=== PATIENT | male | born 2005 | race African-American/Black ===

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

== ENCOUNTER 2023-10-18 11:19 | Emergency (ER) | payer MEDICAID ==
[~2023-10-18] VITALS: Ht 188 cm; Wt 109.0 kg
[~2023-10-18 11:19] MED LIST: IBUP-2029 MT; TOPUD PO
[2023-10-18 12:13] VITALS: O2SAT 99
[2023-10-18 12:31] LABS: CLARITY URINE CLOUDY (CLEAR); COLOR URINE DARK YELLOW (YELLOW); GLUCOSE URINE NEGATIVE (NEGATIVE); KETONES URINE 4+ (NEGATIVE); LEUKOCYTE ESTERASE URINE 2+ (NEGATIVE); NITRITE URINE NEGATIVE (NEGATIVE); OCCULT BLOOD URINE 2+ (NEGATIVE); PROTEIN URINE 2+ (NEGATIVE); SPECIFIC GRAVITY URINE 1.031 (1.005-1.030)
[2023-10-18] MEDS ORDERED: KETOROLAC 60MG/2ML VIAL IM ONE (12:45)
[2023-10-18] MEDS ORDERED: CEFTRIAXONE SODIUM 1G VIAL IM ONE (12:45)
[2023-10-18 13:08] LABS: SQUAMOUS EPITHELIAL CELL URINE NONE SEEN /lpf (RARE/1+); WBC URINE 50-100 /hpf (0-2)
[2023-10-18 13:09] LABS: BACTERIA URINE 2+; MUCUS URINE 1+ /lpf (NONE/TRACE); YEAST URINE NONE SEEN
[2023-10-18] MEDS ORDERED: DOXY100T2 MT (14:50)
[2023-10-18] MEDS ORDERED: LEVO-65 MT (14:50)
[2023-10-18] MEDS ORDERED: NAPR220C61 MT (14:52)
[2023-10-18] MEDS: CEFTRIAXONE SODIUM 500MG VIAL IM NR (15:56)
[2023-10-18] MEDS: LIDOCAINE HCL 1% 20ML VIAL (Pyxis) INJ INFIL ONE (15:56)
[2023-10-18] MEDS: KETOROLAC 60MG/2ML VIAL IM NR (15:56)
[2023-10-18 16:09] VITALS: BP 129/81; PULSE 99; RESP 19; TEMP 99.8
== END 2023-10-18 16:22 | disposition home or self-care (01) ==
LOC: ER 11:19
DX: N45.1 Epididymitis (principal); J45.909 Unspecified asthma, uncomplicated
CPT/HCPCS: 87491; 87591; 81003; 87086; 93976; 76870; 96372; 99285; J0696; J1885; J3490; Z7610 ×2